=== PATIENT | male | born 1975 | race African-American/Black ===

== ENCOUNTER 2023-09-15 10:28 | Outpatient (REF) | payer OTHER, SELFPAY ==
[2023-09-15 14:26] LABS: MANUAL DIFF FLAG NO
[2023-09-15 14:31] LABS: Basophils Percent Auto 0.6 % (0-2); Eosinophils Absolute Auto 0.3 X10*3/uL (0.0-0.4); Eosinophils Percent Auto 4.2 % (0-4); Imm Gran Abs Auto 0.01 X10*3/uL (0.00-0.03); Imm Gran Pct Auto 0.1 % (0.0-0.4); Mean Corpuscular HGB Conc 32.6 g/dl (31.0-36.0); Mean Corpuscular Hemoglobin 30.5 pg (27.0-33.0); Mean Corpuscular Volume 93.5 fL (80.0-98.0); Mean Platelet Volume 11.7 fL (9.4-12.4); Monocytes Absolute Auto 0.5 X10*3/uL (0.1-1.2); Monocytes Percent Auto 7.4 % (2-11); Neutrophils Absolute Auto 5.1 x10*3/uL (2.0-8.3); Neutrophils Percent Auto 73.7 % (45-73); Platelet Count 183 X10*3/uL (160-400); Red Blood Count 4.92 X10*6/uL (4.60-5.80); Red Cell Distribution Width 14.3 % (11.0-16.0); White Blood Count 6.9 X10*3/uL (4.8-10.8)
[2023-09-15 14:48] LABS: Anion Gap 15 (12-20); Blood Urea Nitrogen 28 mg/dL (9-16); Calcium 9.7 mg/dL (8.4-10.2); Carbon Dioxide 24 mmol/L (22-29); Chloride 107 mmol/L (96-108); Estimated Glomerular Filt Rate 35; Glucose Random 100 mg/dL (60-115); Potassium 3.8 mmol/L (3.3-5.1); Sodium 142 mmol/L (135-145); Uric Acid 10.7 mg/dL (3.4-7.0)
[2023-09-15 14:59] LABS: Appearance Urine Clear; Color Urine Yellow; Glucose Urine UA Negative (Negative); Leukocyte Esterase Urine Negative (Negative); Nitrite Urine Negative (Negative); UMIC TRIGGER UACC YES; Urine Blood Negative (Negative); Urine Ketones Negative (Negative); Urine Protein 30 (1+) mg/dL (Neg-Trace)
[2023-09-15 15:03] LABS: Bacteria Urine None Seen (None Seen); Hyaline Casts Urine 0-2 /LPF (0-2); RBC Urine 0-2 /HPF (0-2); Squamous Epithelial Cell Urine 0-2 /HPF (0-2); WBC Urine 0-5 /HPF (0-5)
== END 2023-09-15 10:29 | disposition home or self-care (01) ==
LOC: HO.CHCLDS 10:28
PROVIDERS: Visit Provider Internal Medicine
DX: M1A.9XX0 Chronic gout, unspecified, without tophus (tophi) (principal)
CPT/HCPCS: 36415; 80048; 81001; 84550; 85025

== ENCOUNTER 2023-10-08 14:52 | Outpatient (AMB) | payer OTHER, SELFPAY ==
--- NOTE | 2023-10-08 14:56 | HO.NEPHOV_ITS ---
HPI HPI Comments History of Present Illness Details I would the delight of seeing Rainer in consultation for NUBIA on CKD. He has been having chronic kidney disease for a while but his serum creatinine has gone up significantly from his baseline lately. He has history of heart failure and has seen a construction technician. He has not on any TONNY inhibitor, ARB, nonsteroidal anti-inflammatories. His urine output is good. He denies nausea, vomiting or diarrhea. He has history hypertension and is on multiple antihypertensives. He has hyperuricemia and gets gout. He denies taking nonsteroidals for it. Recently he had gout exacerbation and took prednisone. He denies shortness of breath, paroxysmal nocturnal dyspnea, orthopnea, pedal edema or urinary symptoms. He has no hematuria, renal calculi, flank pain, epistaxis, sinusitis, hearing deficits, photosensitivity, skin rashes, orthostatic symptoms. His serum creatinine recently has been 2.05. He is known to have proteinuria. [facility], [facility] Medical History (Updated 10/18/23 @ 20:38 by Krystian Lawrence MD) History of gout HTN (hypertension) Surgical History History of bariatric surgery Family History (Updated 10/08/23 @ 15:03 by Rebekah Inman MA) Father Diabetes HTN (hypertension) Mother HTN (hypertension) Sister Diabetes Social History (Updated 04/07/22 @ 08:28 by Fariba Amor PA-C) Household Members: Family Alcohol intake: current Alcohol intake frequency: holidays/special occasions only Patient Tobacco Use Status: Never used Tobacco Current occupational status: employed Current occupation: [employer]- [employer] Vital Signs 10/08/23 14:58 Height 6 ft 5 in Weight 292 lb 4 oz BMI 34.7 BP 150/70 H Blood Pressure Location Lt brachial Position Sitting Pulse 72 Pulse Source Pulse Oximeter Pulse Oximetry (%) 97 Oxygen Delivery Method Room Air Physical Exam Vital Signs: Last Vital Signs Pulse 72 10/08/23 14:58 BP 150/70 H 10/08/23 14:58 Pulse Ox 97 10/08/23 14:58 Oxygen Delivery Method Room Air 10/08/23 14:58 BMI result Body Mass Index 34.7 Const General: comfortable and no acute distress Orientation/consciousness: patient oriented x3 HEENT Head: Yes normocephalic Mouth: Normal oral and palatal mucosa present Eyes EOM: EOMs intact bilaterally Neck Neck: Yes supple Resp Auscultation: clear to auscultation bilaterally Cardio Jugular venous distension: no JVD Rate: regular rate GI Palpation (GI): Soft to palpation Auscultation: normal bowel sounds General: Yes no CVA tenderness Back/Spine/Pelvis Back: no CVA tenderness Skin General skin exam: no rashes or lesions noted Neuro General: patient oriented x3 and moves all extremities Extrem General: Yes no pedal edema Assessment & Plan Assessment & Plan (1) HTN (hypertension): Code(s): I10 - Essential (primary) hypertension Qualifiers: Hypertension type: primary hypertension Qualified Code(s): I10 - Essential (primary) hypertension (2) CKD (chronic kidney disease) stage 3, GFR 30-59 ml/min: Code(s): N18.30 - Chronic kidney disease, stage 3 unspecified Qualifiers: Chronic kidney disease stage 3 subtype: stage 3a (GFR 45-59) Qualified Code(s): N18.31 - Chronic kidney disease, stage 3a (3) Gout: Code(s): M10.9 - Gout, unspecified Qualifiers: Gout site: ankle Gout etiology: due to renal impairment Chronicity: chronic Laterality: left Presence of tophus: without tophus Qualified Code(s): M1A.3720 - Chronic gout due to renal impairment, left ankle and foot, without tophus (tophi) Plan Rainer has chronic kidney disease at baseline. Most likely he has been having progression of his CKD. He never had a renal biopsy. His history heart failure. He has not taking any nonsteroidal anti-inflammatories, TONNY inhibitor, ARB. He recently had exacerbation of gout and took prednisone. I started him on allopurinol 100 mg daily. I ordered 24 hour urine collection for creatinine clearance along with follow-up blood work. I plan to continue to work him up including imaging studies and may consider renal biopsy if deemed appropriate. All questions answered. Follow-up appointment given. Orders: Orders Creatinine Clearance Urine 10/08/23 I10 - Essential (primary) hypertension, N18.30 - Chronic kidney disease, stage 3 unspecified Protein Creatinine Ratio, Ur 10/08/23 I10 - Essential (primary) hypertension, N18.30 - Chronic kidney disease, stage 3 unspecified Phosphorus 10/08/23 N18.30 - Chronic kidney disease, stage 3 unspecified, I10 - Essential (primary) hypertension Calcium 10/08/23 N18.30 - Chronic kidney disease, stage 3 unspecified, I10 - Essential (primary) hypertension Electrolytes 10/08/23 N18.30 - Chronic kidney disease, stage 3 unspecified, I10 - Essential (primary) hypertension Blood Urea Nitrogen 10/08/23 N18.30 - Chronic kidney disease, stage 3 unspecified, I10 - Essential (primary) hypertension Creatinine 10/08/23 N18.30 - Chronic kidney disease, stage 3 unspecified, I10 - Essential (primary) hypertension Parathyroid Hormone Intact 10/08/23 N18.30 - Chronic kidney disease, stage 3 unspecified, I10 - Essential (primary) hypertension Vitamin D 25-OH Total 10/08/23 N18.30 - Chronic kidney disease, stage 3 unspecified, I10 - Essential (primary) hypertension Vitamin D 25-OH Total 3 Weeks N18.30 - Chronic kidney disease, stage 3 unspecified, I10 - Essential (primary) hypertension Medications: New allopurinol 100 mg PO DAILY 90 tabs 3RF 90 days Coding Level of Care Code New Pt Level 4 (06079) Diagnoses Primary hypertension I10 Hypertension type: primary hypertension Stage 3a chronic kidney disease N18.31 Chronic kidney disease stage 3 subtype: stage 3a (GFR 45-59) 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 M1A.3720 Gout site: ankle Gout etiology: due to renal impairment Chronicity: chronic Laterality: left Presence of tophus: without tophus Results Reviewed Nephrology Results: Hgb 15.0 g/dl (14.0-18.0) 09/15/23 WBC 6.9 X10*3/uL (4.8-10.8) 09/15/23 Plt Count 183 X10*3/uL (160-400) 09/15/23 Sodium 142 mmol/L (135-145) 09/15/23 Potassium 3.8 mmol/L (3.3-5.1) 09/15/23 Chloride 107 mmol/L (96-108) 09/15/23 Carbon Dioxide 24 mmol/L (22-29) 09/15/23 BUN 28 mg/dL (9-16) H 09/15/23 Creatinine 2.05 mg/dL (0.5-1.4) H 09/15/23 Calcium 9.7 mg/dL (8.4-10.2) 09/15/23 Urine Protein 30 (1+) mg/dL (Neg-Trace) H 09/15/23
[2023-10-08 14:58] VITALS: BP 150/70; PULSE 72; O2SAT 97; BMI 34.7
== END 2023-10-08 15:43 | disposition home or self-care (01) ==
PROVIDERS: PCP Internal Medicine; Referring Provider Internal Medicine; Visit Provider Internal Medicine Nephrology
DX: I10 Essential (primary) hypertension (principal); N18.31 Chronic kidney disease, stage 3a; M1A.3720 Chronic gout due to renal impairment, left ankle and foot, without tophus (tophi)
CPT/HCPCS: 99204

== ENCOUNTER → 2023-10-08 14:52 | Outpatient (BNVA) | payer OTHER, SELFPAY | PROVIDERS: PCP Internal Medicine; Referring Provider Internal Medicine; Visit Provider Internal Medicine Nephrology ==

== ENCOUNTER 2023-11-01 15:09 | Outpatient (REF) | payer OTHER, SELFPAY ==
[2023-11-01 18:07] LABS: Creatinine, mg/dL 90.82
[2023-11-01 18:54] LABS: Creatinine, 24Hr Urine 0.6 G/Day (1.0-2.0); Total Volume 24 Hour Urine 700 mL
[2023-11-01 18:57] LABS: Creatinine (CrCl) 2.36 mg/dL (0.5-1.4); Creatinine Clearance 18.7 mL/min (85-125)
== END 2023-11-01 15:10 | disposition home or self-care (01) ==
LOC: HO.CHCLNP 15:09
PROVIDERS: Visit Provider Internal Medicine Nephrology
DX: I12.9 Hypertensive chronic kidney disease with stage 1 through stage 4 chronic kidney disease, or unspecified chronic kidney disease (principal); N18.30 Chronic kidney disease, stage 3 unspecified
CPT/HCPCS: 82575

== ENCOUNTER 2023-11-01 15:20 | Outpatient (REF) | payer OTHER, SELFPAY ==
[2023-11-01 18:09] LABS: Creatinine Urine 156.72 mg/dL; Protein/Creatinine Ratio, Ur 0.05 (<0.2); Total Protein Urine Random 8 mg/dL (<12)
[2023-11-01 18:14] LABS: Parathyroid Hormone Intact 82.7 pg/mL (8.7-77.1)
[2023-11-01 18:16] LABS: Alanine Aminotransferase 15 U/L (0-40); Albumin Level 4.1 g/dL (3.5-5.0); Alkaline Phosphatase 59 U/L (39-117); Anion Gap 15 (12-20); Aspartate Amino Transferase 13 U/L (5-37); Bilirubin Direct 0.2 mg/dL (0.0-0.5); Bilirubin Total 0.6 mg/dL (0.0-1.0); Blood Urea Nitrogen 28 mg/dL (9-16); Calcium 9.7 mg/dL (8.4-10.2); Carbon Dioxide 26 mmol/L (22-29); Chloride 106 mmol/L (96-108); Cholesterol 163 mg/dL (<200); Estimated Glomerular Filt Rate 29; HDL Cholesterol 37 mg/dL (>40); LDL Cholesterol Calculated 97 mg/dL (<100); Phosphorus 2.6 mg/dL (2.7-4.5); Potassium 3.7 mmol/L (3.3-5.1); Sodium 143 mmol/L (135-145); Total Protein 7.9 g/dL (6.5-8.0); Triglycerides 147 mg/dL (<150)
[2023-11-01 18:31] LABS: Vitamin D 25-OH Total 26.7 ng/mL (>30)
[2023-11-01 18:31] LABS: Vitamin D 25-OH Total 27.6 ng/mL (>30)
== END 2023-11-01 15:21 | disposition home or self-care (01) ==
LOC: HO.CHCLDS 15:20
PROVIDERS: Referring Provider Internal Medicine Nephrology; Visit Provider Internal Medicine
DX: I12.9 Hypertensive chronic kidney disease with stage 1 through stage 4 chronic kidney disease, or unspecified chronic kidney disease (principal); N18.30 Chronic kidney disease, stage 3 unspecified
CPT/HCPCS: 36415; 80051; 80061; 80076; 82306; 82310; 82565; 82570; 83970; 84100; 84156; 84520